=== PATIENT | male | born 1980 | race Caucasian/White ===

== ENCOUNTER 2016-10-25 19:12 | Emergency (ER) | payer OTHER ==
[2016-10-25 22:45] VITALS: BP 139/96
== END 2016-10-25 22:45 | disposition home or self-care (01) ==
LOC: ED 19:12
DX: G44.209 Tension-type headache, unspecified, not intractable (principal); K21.9 Gastro-esophageal reflux disease without esophagitis; Z88.0 Allergy status to penicillin